=== PATIENT | male | born 1960 | race Two or more races ===

== ENCOUNTER 2021-08-30 08:50 | Emergency (ER) | payer BC, OTHER ==
[~2021-08-30] VITALS: Ht 167.6 cm; Wt 65.8 kg
[2021-08-30 10:44] VITALS: BP 121/82
== END 2021-08-30 11:44 | disposition home or self-care (01) ==
LOC: ER 08:50
DX: S01.312A Laceration without foreign body of left ear, initial encounter (principal); W26.9XXA Contact with unspecified sharp object(s), initial encounter; Y93.89 Activity, other specified; Y92.89 Other specified places as the place of occurrence of the external cause; Y99.8 Other external cause status
CPT/HCPCS: 12013; 70486; J2001

== ENCOUNTER 2021-10-15 10:23 | Emergency (ER) | payer BC ==
[~2021-10-15] VITALS: Ht 167.6 cm; Wt 63.5 kg
[2021-10-15 12:16] VITALS: BP 155/81
== END 2021-10-15 12:26 | disposition home or self-care (01) ==
LOC: ER 10:23
DX: S01.312D Laceration without foreign body of left ear, subsequent encounter (principal); X58.XXXD Exposure to other specified factors, subsequent encounter